=== PATIENT | male | born 1980 | race Caucasian/White ===

== ENCOUNTER 2021-09-24 10:12 | Emergency (ER) | payer BC, OTHER, SELFPAY ==
--- OUTSIDE RECORDS SUMMARY | 2021-09-24 10:15 | XMS REPORT | Continuity of Care Document ---
:1980 Author Organization [facility] t Address [address] [place] [address] Care Team Providers Name Role Phone MORGAN_S Attending Clinician Unavailable Carter Navarrete Attending Clinician [phone] Morgan Attending Clinician [phone] YOSHI Attending Clinician Unavailable Robby Attending Clinician [phone] MORGAN_S Admitting Clinician Unavailable TANK_LAWRENCE Admitting Clinician Unavailable Payers Payer Name Policy Type Policy Number Effective Date Expiration Date S xander [place]: YOEL [id number] 2020 ADVANTAGE (HMO) 00:00:00 Problems This patient has no known problems. Allergies, Adverse Reactions, Alerts This patient has no known allergies or adverse reactions. Medications This patient has no known medications. Procedures This patient has no known procedures. Encounters Start End Encounter Admission Attending Care Care Encounter Source Date/Time Date/Time Type Type Clinicians Facility Department ID 2021-09-10 2021-09-10 Outpatient [facility] [id number] [place] 03:34:00 03:34:00 [facility] 2021-08-06 2021-08-06 Outpatient [facility] [id number] [place] 03:10:00 03:10:00 [facility] 2021-06-23 2021-06-23 Outpatient [facility] [id number] [place] 02:57:00 02:57:00 131 [facility] 2021-05-27 2021-05-27 Outpatient [facility] [id number] [place] 11:42:00 11:42:00 [facility] 2021-05-27 2021-05-27 Outpatient Landon [facility] [id number] 00:00:00 00:00:00 Tyrone [id number] Carter [id number] 2020-12-18 2020-12-18 Outpatient FANIS [facility] [id number] [place] 03:22:00 03:22:00 728 [facility] 2020-12-18 2020-12-18 Outpatient Morgan [facility] [id number] 00:00:00 00:00:00 Jody [id number] 2020-09-04 2020-09-04 Outpatient [facility] [id number] [place] 10:42:00 10:42:00 414 [facility] 2020-09-04 2020-09-04 Outpatient Robby [facility] [id number] 00:00:00 00:00:00 Esteban [id number] 2020-08-29 2020-08-29 Outpatient [facility] [id number] [place] 02:57:00 02:57:00 408 [facility] 2020-08-29 2020-08-29 Outpatient Robby [facility] [id number] 00:00:00 00:00:00 Esteban [id number] 2020-08-22 2020-08-22 Outpatient [facility] [id number] [place] 11:42:00 11:42:00 401 [facility] 2020-08-22 2020-08-22 Outpatient Robby, [facility] [id number] 00:00:00 00:00:00 Esteban [id number] 2020-08-15 2020-08-15 Outpatient [facility] [id number] [place] 04:27:00 04:27:00 325 [facility] 2020-08-15 2020-08-15 Outpatient Robby [facility] [id number] 00:00:00 00:00:00 Esteban [id number] Results This patient has no known results.
[2021-09-24 11:03] LABS: Absolute Lymphocytes (CBC) 2.1 K/uL (0.7-4.9); Lymphocytes % 26.5 % (15.3-44.8); RBC Red Blood Cell Count 4.76 M/uL (4.33-5.43)
[2021-09-24 11:14] LABS: BUN Blood Urea Nitrogen 14 mg/dL (7-18); Bicarbonate 29 mmol/L (21-32); Glucose Level 91 mg/dL (74-106); Potassium 3.8 mmol/L (3.5-5.1); Sodium Level 139 mmol/L (136-145); Troponin High Sensitivity < 3.0 pg/mL (<58.9)
--- NOTE | 2021-09-24 11:25 | RAD REPORT ---
EXAM DESCRIPTION: CT - Head Brain Wo Cont - 09/24/2021 10:53 am CLINICAL HISTORY: Headache, new or worsening, positional COMPARISON: No comparisons TECHNIQUE: Axial 5 mm thick images of the head were obtained without IV contrast. All CT scans are performed using dose optimization technique as appropriate and may include automated exposure control or mA/KV adjustment according to patient size. FINDINGS: No intracranial hemorrhage, mass, edema or shift of mid-line structures. No acute infarcti on changes seen. No abnormal extra-axial fluid collections. Ventricles are normal. Mastoid air cells and visualized portions of the paranasal sinuses are clear. No acute bony findings. IMPRESSION: Negative non-contrast CT head examination.
--- NOTE | 2021-09-24 11:45 | RAD REPORT ---
EXAM DESCRIPTION: RAD - Chest Single View - 09/24/2021 10:52 am CLINICAL HISTORY: HTN, dizziness COMPARISON: None available TECHNIQUE: AP portable chest image was obtained 09/24/2021 10:52 am . FINDINGS: Lungs are clear. Heart and vasculature are normal. No measurable pleural effusion and no p neumothorax. No acute bony abnormality seen. No acute aortic findings suspected. IMPRESSION: No acute cardiopulmonary process.
--- NOTE | 2021-09-24 13:04 | EDPHYS ---
Physician Documentation [facility] Name: Jonathon Wyman Age: 41 yrs Sex: Male : 1980 Arrival Date: 09/24/2021 Time: 10:14 Bed 7 Private MD: ED Physician Fernando Collins HPI: 09/24 12:29 This 41 yrs old Male presents to ER via Ambulatory with complaints of Blood Pressure rn Problem, Dizziness, Headache. 12:29 The patient presents with dizziness, lightheadedness. rn 12:29 Onset: The symptoms/episode began/occurred 5 day(s) ago. Context: occurred at home, at rn work, occurred while the patient was at rest. Modifying factors: The symptoms are alleviated by Laying down and taking blood pressure medication, the symptoms are aggravated by standing up, changing position. Associated signs and symptoms: Pertinent positives: headache, Pertinent negatives: abdominal pain, ataxia, chest pain, confusion, focal weakness, seizure, shortness of breath, syncope. Severity of symptoms: At their worst the symptoms were moderate in the emergency department the symptoms have improved. The patient has experienced similar episodes in the past. The patient has been recently seen by a physician:. Patient reports having problems with blood pressure lately, notices blood pressure rises and feels foggy, lightheaded, headache, flushed. Takes blood pressure medication and gets better. Recently seen PCP and changed from losartan to amlodipine with good response. Patient feeling better already with decrease in blood pressure prior to arrival after taking medication. No focal neurological problems. No vision changes. No speech changes. No syncope.. Historical: - Allergies: 10:33 No Known Allergies; jl7 - Home Meds: 10:33 amlodipine 5 mg tab [Active]; jl7 - PMHx: 10:33 Hypertensive disorder; jl7 - Social history:: Smoking status: Patient denies any tobacco usage or history of. - Family history:: not pertinent. - Hospitalizations: : No recent hospitalization is reported. ROS: 12:29 Constitutional: Negative for fever, chills, and weight loss, Eyes: Negative for injury, rn pain, redness, and discharge, Neck: Negative for injury, pain, and swelling, Cardiovascular: Negative for chest pain, palpitations, and edema, Respiratory: Negative for shortness of breath, cough, wheezing, and pleuritic chest pain, Abdomen/GI: Negative for abdominal pain, nausea, vomiting, diarrhea, and constipation, Back: Negative for injury and pain, MS/Extremity: Negative for injury and deformity, Skin: Negative for injury, rash, and discoloration, Neuro: Negative for numbness, tingling, and seizure. Exam: 12:29 Constitutional: This is a well developed, well nourished patient who is awake, alert, rn and in no acute distress. Head/Face: Normocephalic, atraumatic. Eyes: Pupils equal round and reactive to light, extra-ocular motions intact. Lids and lashes normal. Conjunctiva and sclera are non-icteric and not injected. Cornea within normal limits. Periorbital areas with no swelling, redness, or edema. Neck: Trachea midline, Supple, full range of motion without nuchal rigidity. No Meningismus. Cardiovascular: Bradycardic, regular. No pulse deficits. Respiratory: No increased work of breathing, no retractions or nasal flaring. Abdomen/GI: Soft, non-tender Skin: Warm, dry MS/ Extremity: Pulses equal, no cyanosis. Neurovascular intact. Full, normal range of motion. Equal circumference. Neuro: Awake and alert, GCS 15, oriented to person, place, time, and situation. Cranial nerves II-XII grossly intact. Motor strength 5/5 in all extremities. Sensory grossly intact. Cerebellar exam normal. Vital Signs: 10:31 BP 149 / 85; Pulse 68; Resp 17; Temp 98.4; Pulse Ox 100% ; Weight 127.01 kg; Height 6 jl7 ft. 1 in. (185.42 cm); Pain 0/10; 11:36 BP 133 / 73; Pulse 55; Resp 17; Pulse Ox 99% on R/A; mh5 11:55 BP 136 / 70; Pulse 56; Resp 17; Pulse Ox 100% ; Pain 2/10; jh6 13:11 BP 133 / 82; Pulse 53; Resp 17; Temp 98.2; Pulse Ox 100% ; Pain 0/10; jh6 10:31 Body Mass Index 36.94 (127.01 kg, 185.42 cm) jl7 MDM: 10:23 Patient medically screened. rn 13:02 Differential diagnosis: cardiac arrhythmia, generalized weakness, idiopathic dizziness, rn HTN urgency. Data reviewed: vital signs, nurses notes, lab test result(s), EKG, radiologic studies, CT scan, and as a result, I will discharge patient. Counseling: I had a detailed discussion with the patient and/or guardian regarding: the historical points, exam findings, and any diagnostic results supporting the discharge/admit diagnosis, lab results, radiology results, the need for outpatient follow up, to return to the emergency department if symptoms worsen or persist or if there are any questions or concerns that arise at home. 13:03 Response to treatment: the patient's symptoms have markedly improved after treatment, rn and as a result, I will discharge patient. Special discussion: I discussed with the patient/guardian in detail that at this point there is no indication for admission to the hospital. It is understood, however, that if the symptoms persist or worsen the patient needs to return immediately for re-evaluation. Based on the history and exam findings, there is no indication for further emergent testing or inpatient evaluation. I discussed with the patient/guardian the need to see the primary care provider for further evaluation of the symptoms. 09/24 10:39 Order name: Basic Metabolic Panel; Complete Time: 12: rn 09/24 10:39 Order name: CBC with Diff; Complete Time: 12: rn 09/24 10:39 Order name: D-Dimer; Complete Time: 13:02 rn 09/24 10:39 Order name: Troponin HS; Complete Time: 12: rn 09/24 10:39 Order name: XRAY Chest (1 view); Complete Time: 12: rn 09/24 10:39 Order name: CT Head Brain wo Cont; Complete Time: 12: rn 09/24 10:39 Order name: EKG; Complete Time: 10:40 rn 09/24 10:39 Order name: Cardiac monitoring; Complete Time: 10:46 rn 09/24 10:39 Order name: EKG - Nurse/Tech; Complete Time: 10:43 rn 09/24 10:39 Order name: IV Saline Lock; Complete Time: 10:45 rn 09/24 10:39 Order name: Labs collected and sent; Complete Time: 10:45 rn 09/24 10:39 Order name: O2 Per Protocol; Complete Time: 10:43 rn 09/24 10:39 Order name: O2 Sat Monitoring; Complete Time: 10:43 rn Administered Medications: No medications were administered Disposition Summary: 09/24/21 13:04 Discharge Ordered Location: Home rn Problem: new rn Symptoms: have improved rn Condition: Stable rn Diagnosis - Essential (primary) hypertension rn Followup: rn - With: Private Physician - When: As needed - Reason: Recheck today's complaints, Re-evaluation by your physician Discharge Instructions: - Discharge Summary Sheet rn - Hypertension, Adult rn - Heart Disease high school learning support teacher - How to Take Your Blood Pressure, [id number] rn - Managing Your Hypertension rn Forms: - Medication Reconciliation Form rn - Thank You Letter rn - Antibiotic risk management intern - Prescription Opioid Use rn Signatures: Dispatcher [employer] Fernando Brito MD MD rn Leal, Jahala, RN RN jl7 Rosie Serrato, RN RN jh6
--- NOTE | 2021-09-24 13:04 | ER ---
Nurse's Notes [facility] Name: Jonathon Wyman Age: 41 yrs Sex: Male : 1980 Arrival Date: 09/24/2021 Time: 10:14 Bed 7 Private MD: Diagnosis: Essential (primary) hypertension Presentation: 09/24 10:31 Chief complaint: Patient states: Intermittent high blood pressure x 5 days, PCP just jl7 changed medication from Losartan to Amlodipine. Coronavirus screen: At this time, the client does not indicate any symptoms associated with coronavirus-19. Ebola Screen: No symptoms or risks identified at this time. Initial Sepsis Screen: Does the patient meet any 2 criteria? No. Patient's initial sepsis screen is negative. Does the patient have a suspected source of infection? No. Patient's initial sepsis screen is negative. Risk Assessment: Do you want to hurt yourself or someone else? Patient reports no desire to harm self or others. Onset of symptoms was September 20, 2021. 10:31 Method Of Arrival: Ambulatory [facility] 10:31 Acuity: TACOS 3 7 Triage Assessment: 10:33 Headache History: The patient has had previous headaches. General: Appears in no [facility] apparent distress. uncomfortable, Behavior is calm, cooperative, appropriate for age. Pain: Denies pain. Pain currently is 0 out of 10 on a pain scale. Pain began gradually, Also complains of no other associated symptoms. Neuro: Level of Consciousness is awake, alert, obeys commands, Oriented to person, place, time, situation. Historical: - Allergies: 10:33 No Known Allergies; jl7 - Home Meds: 10:33 amlodipine 5 mg tab [Active]; jl7 - PMHx: 10:33 Hypertensive disorder; jl7 - Social history:: Smoking status: Patient denies any tobacco usage or history of. - Family history:: not pertinent. - Hospitalizations: : No recent hospitalization is reported. Screenin:46 Abuse screen: Denies threats or abuse. Nutritional screening: No deficits noted. 6 Tuberculosis screening: No symptoms or risk factors identified. Fall Risk IV access (20 points). Assessment: 10:45 General: Appears in no apparent distress. comfortable, Behavior is calm, cooperative. 6 Pain: Denies pain. 10:45 Pain: Complains of pain in forehead, left temporal area and right temporal area Pain jh6 currently is 3 out of 10 on a pain scale. Quality of pain is described as dull, Pain began gradually, Is continuous. Neuro: No deficits noted. Level of Consciousness is awake, alert, obeys commands, Oriented to person, place, time, situation. Cardiovascular: No deficits noted. Capillary refill < 3 seconds Thorax Rhythm is sinus rhythm Chest pain is denied. Respiratory: No deficits noted. 11:54 Reassessment: Patient and/or family updated on plan of care and expected duration. Pain jh6 level reassessed. Patient is alert, oriented x 3, equal unlabored respirations, skin warm/dry/pink. pt states that he is feeling better. slight longo still present but pt states most likely related to not eating this am. Patient denies pain at this time. Patient states feeling better. Pain: Complains of pain in forehead, left temporal area and right temporal area Pain currently is 2 out of 10 on a pain scale. 13:11 Reassessment: No changes from previously documented assessment. Patient denies pain at jh6 this time. Patient states feeling better. Vital Signs: 10:31 BP 149 / 85; Pulse 68; Resp 17; Temp 98.4; Pulse Ox 100% ; Weight 127.01 kg; Height 6 jl7 ft. 1 in. (185.42 cm); Pain 0/10; 11:36 BP 133 / 73; Pulse 55; Resp 17; Pulse Ox 99% on R/A; mh5 11:55 BP 136 / 70; Pulse 56; Resp 17; Pulse Ox 100% ; Pain 2/10; jh6 13:11 BP 133 / 82; Pulse 53; Resp 17; Temp 98.2; Pulse Ox 100% ; Pain 0/10; jh6 10:31 Body Mass Index 36.94 (127.01 kg, 185.42 cm) 7 ED Course: 10:14 Patient arrived in ED. as 10:22 Fernando Collins MD is Attending Physician. rn 10:33 Triage completed. jl7 10:33 Arm band placed on right wrist. jl7 10:38 Rosie Serrato, GLEN is Primary Nurse. 6 10:42 Patient has correct armband on for positive identification. Bed in low position. Call [facility] light in reach. Side rails up X 1. Warm blanket given. Pillow given. case monitor on. Pulse ox on. NIBP on. 10:45 Inserted saline lock: 20 gauge in right antecubital area, using aseptic technique. [facility] Blood collected. 10:46 Basic Metabolic Panel Sent. 5 10:46 CBC with Diff Sent. [facility] 10:46 D-Dimer Sent. [facility] 10:46 Troponin HS Sent. [facility] 10:46 Initial lab(s) drawn, by ED staff, sent to lab. EKG done, by ED staff, reviewed by verónica Collins MD. 10:53 XRAY Chest (1 view) In Process Unspecified. EDMS 10:54 CT Head Brain wo Cont In Process Unspecified. EDMS 11:54 No provider procedures requiring assistance completed. [facility] 13:15 IV discontinued, intact, bleeding controlled, No redness/swelling at site. Pressure 6 dressing applied. Administered Medications: No medications were administered Outcome: 13:04 Discharge ordered by . rn 13:11 Discharged to home ambulatory. [facility] 13:11 Condition: good 13:11 Discharge instructions given to patient, Instructed on discharge instructions, follow up and referral plans. Demonstrated understanding of instructions, follow-up care. 13:16 Patient left the ED. [facility] Signatures: Dispatcher [employer] EDNE Daily Alfaro Roman, MD MD rn Martinez, Maria Lidia Melgar RN RN Rosie Rodriguez RN RN 6
[2021-09-24 13:24] VITALS: O2SAT 100
[2021-09-24 13:26] VITALS: BP 133/82; TEMP 98.2
--- NOTE | 2021-09-25 14:12 | EKG ---
Test Date: 2021-09-24 Test Time: 10:40:41 [employer] Systems Engineer: RICHARDSON MEASUREMENT RESULTS: Intervals: Rate: 57 MS: 156 QRSD: 98 QT: 420 QTc: 408 Palmer: P: 46 MS: 156 QRS: 43 T: 39 INTERPRETIVE STATEMENTS: Sinus bradycardia Otherwise normal ECG Compared to ECG 05/15/1998 14:29:00 No significant changes Electronically Signed On 09-25-21 14:11:40 CDT by Bijan Velásquez
== END 2021-09-24 13:16 | disposition home or self-care (01) ==
LOC: ER 10:12
DX: I10 Essential (primary) hypertension (principal); R51.9 Headache, unspecified
CPT/HCPCS: 36415; 70450; 71045; 80048; 84484; 85025; 85379; 93005; 99284

== ENCOUNTER 2022-01-16 07:00 | Day surgery (SDC) | payer BC ==
[2022-01-15 12:15] LABS: Absolute Lymphocytes (CBC) 2.4 K/uL (0.7-4.9); Hematocrit 43.9 % (39.6-49.0); Lymphocytes % 35.3 % (15.3-44.8); MCV 88.5 fL (80-100); MPV 7.8 fL (7.6-11.3); RBC Red Blood Cell Count 4.96 M/uL (4.33-5.43)
[2022-01-15 12:23] LABS: SARS-CoV-2 Antigen Rapid Res Negative (Negative)
[2022-01-15 12:41] LABS: Albumin 3.8 g/dL (3.4-5.0); Bilirubin Total 0.4 mg/dL (0.2-1.0); Protein, Total 7.2 g/dL (6.4-8.2)
[~2022-01-16 07:00] MED LIST: CEFOXITIN 2 GM in NA CHLORIDE 0.9% 100 ML IVPB SCH
[2022-01-16] MEDS ORDERED: CEFOXITIN SODIUM 2 GM/VIAL ONE (07:25)
[2022-01-16] MEDS ORDERED: Ringers Lactate 1,000 ML IV ONE (07:26)
[2022-01-16] MEDS ORDERED: propofoL 200 MG/20 ML VIAL IV ONE (08:57)
[2022-01-16] MEDS ORDERED: FENTANYL CITR 100 MCG/2 ML IV ONE (08:58)
[2022-01-16] MEDS ORDERED: BUPIVACAINE 0.25% PF 30 ML VIAL ONE (08:58)
--- NOTE | 2022-01-16 10:20 | P.OP ---
Preoperative diagnosis: Chronic Cholecystitis with Cholelithiasis Postoperative diagnosis: Chronic Cholecystitis with Cholelithiasis Primary procedure: Laparoscopic Cholecystectomy with ICG Anesthesia: GETA + Local Estimated blood loss: <5cc Specimen: gallbladder Findings: Chronic Cholecystitis with Cholelithiasis Complications: None Transferred to: Recovery Room Condition: Good
[2022-01-16] MEDS: HYDROMORPHONE HCL 1 MG/ML INJ ONE ×2 (10:33→10:39)
--- NOTE | 2022-01-16 11:29 | OP ---
Date of Procedure: 01/16/2022 Surgeon: Luis Colon MD, Preoperative Diagnosis: Chronic cholecystitis, cholelithiasis. Postoperative Diagnosis: Chronic cholecystitis, cholelithiasis. Procedure Performed: Laparoscopic cholecystectomy with ICG (indocyanine green) cholangiography. Anesthesia: General endotracheal plus local. Estimated Blood Loss: 5 cc. Specimen: Gallbladder. Findings: Chronic cholecystitis with cholelithiasis. Complications: None. Disposition: The patient was transferred to recovery room in good condition. Procedure In Detail: After informed consent was obtained, the patient was brought to the operating r oom, prepped and draped in the usual sterile fashion. After adequate anesthesia was achieved, a supr aumbilical area was anesthetized with 0.25% Marcaine, sharply incised. A 5 mm trocar was placed unde r direct vision without complication. Insufflation was obtained to 15 mmHg at this time. There was no injury to vital structures upon entry into the abdomen. Three additional trocars were placed, 1 i n the epigastrium, 2 in the right upper quadrant and right mid abdominal quadrant. These were all si milarly anesthetized, sharply incised. A 5 mm trocar was placed under direct vision without complica tion. The umbilical trocar was then upsized to a 12 mm under direct vision without complication. Pa tient was positioned head up right-side up position. Ratcheted grasper was used to grasp the patient 's gallbladder, placed towards the patient's right shoulder. Indocyanine green cholangiography helpe d to confirm the position of the cystic duct and the common duct. Dissection continued down to remov e significant inflammatory rind off the anterior surface of the gallbladder near the Tyler's pouch . At this point, I circumferentially dissected out 2 structures identified as both the cystic duct, cystic artery. These were the only 2 structures entering the gallbladder and the critical view of sa fety was obtained at this point. At this point, indocyanine green once again was used to confirm the anatomy which was confirmed at this point. At this point, after these structures were completely sk eletonized, I placed a double titanium clips on the proximal side of both the cystic duct and cystic artery, and singly on the distal side of the cystic duct and cystic artery. I then ligated the tube obstruction with Endo Elver without evidence of complication. I then removed the gallbladder from t he hepatic fossa with minimal bowel spillage throughout the procedure. The gallbladder was then plac ed in Endo Catch bag, removed through the umbilical trocar site and sent off for pathologic examinati on. I then copiously irrigated the patient's hepatic fossa and suctioned out until completely dry. Placed the patient back in neutral position and inspected the area once again. No additional hemosta tic was required. Clips were found to be in good position at the end of the procedure. I then close d the umbilical trocar site using a Renard-Memo suture passer with 0 Vicryl in interrupted fashio n with good approximation of tissues. The abdomen was completely desufflated under direct visualizat ion without evidence of complication. All remaining trocars were removed. All skin incisions were c opiously irrigated and closed with a 4-0 Monocryl in running fashion. Dermabond was placed over the top. The patient tolerated the procedure well without evidence of complication and transferred to [facility] in good condition. All counts were correct at the end of the case. ANJEL/HEIDE Voice ID: [id number] Report ID: [id number]
[2022-01-16] MEDS ORDERED: HYDROCODONE/APAP 10/325 TAB ONE (11:51)
[2022-01-16] MEDS ORDERED: ONDANSETRON 4 MG/2 ML VIAL ONE (12:07)
[2022-01-16 12:51] VITALS: BP 103/46; TEMP 97.7; O2SAT 100
== END 2022-01-16 12:10 | disposition home or self-care (01) ==
LOC: OR 07:00
PROVIDERS: ATTEND Surgery
PROC: BF13YZZ Fluoroscopy of Gallbladder and Bile Ducts using Other Contrast (ICD-10-PCS; 2022-01-16)
PROC: 0FT44ZZ Resection of Gallbladder, Percutaneous Endoscopic Approach (ICD-10-PCS; principal; 2022-01-16 08:30)
DX: K80.10 Calculus of gallbladder with chronic cholecystitis without obstruction (principal); Z20.822 Contact with and (suspected) exposure to COVID-19; I10 Essential (primary) hypertension
CPT/HCPCS: 85025; 36415; 88304; 80053; 87811; 47563; J2704; J3010; J1170; J7120; J0694; J2405